=== PATIENT | male | born 1990 | race African-American/Black ===

== ENCOUNTER 2020-03-28 14:01 | Emergency (ER) | payer OTHER, SELFPAY ==
[2020-03-28 14:19] VITALS: BP 114/73; PULSE 57; RESP 16; TEMP 36.7; O2SAT 100
--- NOTE | 2020-03-28 14:24 | PC.NURSE ---
in br to obtain ua spec.
[2020-03-28 14:30] VITALS: BP 114/73; PULSE 57; RESP 16; TEMP 36.7; O2SAT 100
--- NOTE | 2020-03-28 14:49 | ED.FEMALEGU ---
HPI - Female Genitourinary General Chief complaint: Urogenital-Male Stated complaint: STD Time Seen by Provider: 03/28/20 14:34 Source: patient and RN notes reviewed Mode of arrival: ambulatory Limitations: no limitations History of Present Illness HPI Narrative: Patient presents today complaining of urethral irritation and itching x2 days. Reports exposure to chlamydia or trichomonas. States his girlfriend was notified yesterday that she was positive for 1 or possibly both and has been treated appropriately. Denies penile discharge, pain or swelling in the penis or scrotum. Denies any rash or lesions. Denies dysuria or hematuria. Denies abdominal pain. Related Data Allergies Allergy/AdvReac Type Severity Reaction Status Date / Time No Known Allergies Allergy Unverified 11/19/14 21:12 Review of Systems Review of Systems: Narrative: CONSTITUTIONAL: Denies body aches, fever, chills, or sweats. EYES: Denies visual changes, redness, or discharge. ENT: Denies rhinorrhea, congestion, sore throat, or otalgia. CARDIOVASCULAR: Denies chest pain, palpitations, or edema. RESPIRATORY: Denies cough or dyspnea. GASTROINTESTINAL: Denies abdominal pain, nausea, vomiting, or diarrhea. GENITOURINARY: Denies dysuria or hematuria. + Urethral irritation and itching SKIN: Denies rash, itching, or wounds. MUSCULOSKELETAL: Denies back pain, joint pain, or myalgia. NEUROLOGIC: Denies headache, numbness, tingling, or weakness. PSYCH: Denies depression or anxiety. PMFSH Comments At time of signature, I have reviewed and agree with nursing past medical, surgical, social and family history unless otherwise noted. Please see nursing chart for further information. There is no relevant family history pertinent to the presenting complaint Exam Narrative: Exam Narrative: GENERAL: Well-appearing, well-nourished, and in no acute distress. HEAD: Normocephalic, atraumatic. EYES: EOMI. No redness or drainage. Conjunctivae normal. ENT: Mucous membranes pink and moist. NECK: Normal AROM. CHEST: No respiratory distress. Clear to auscultation. HEART: Regular rate and rhythm. No murmur appreciated. Normal peripheral pulses. : deferred EXTREMITIES: Normal range of motion. No edema. SKIN: Warm, dry, no rash. Capillary refill normal. Normal skin turgor. NEURO: No focal deficits. Alert and oriented x3. Gait steady. PSYCH: Normal affect. No signs of depression or anxiety. Course Vital Signs Vital signs: Vital Signs Temperature 98.1 F 03/28/20 14:19 Pulse Rate 57 L 03/28/20 14:19 Respiratory Rate 16 03/28/20 14:19 Blood Pressure 114/73 03/28/20 14:19 Pulse Oximetry 100 03/28/20 14:19 Temperature 98.1 F 03/28/20 14:30 Pulse Rate 57 L 03/28/20 14:30 Respiratory Rate 16 03/28/20 14:30 Blood Pressure 114/73 03/28/20 14:30 Pulse Oximetry 100 03/28/20 14:30 Reviewed MDM - Female Genitourinary Differential Diagnosis Differential diagnosis: Likely urinary tract infection, trichomoniasis and other (Gonorrhea, chlamydia, prostatitis) Critical Care Time Critical Care Time Critical Care Time: No Discharge Plan Discharge Clinical Impression: Concern about STD in male without diagnosis Patient Disposition: Home, Self-Care Condition: Stable Instructions: Antibiotic Form, Chlamydia (ED), Gonorrhea (ED), Trichomoniasis (ED) Additional Instructions: You have been tested and treated for gonorrhea, chlamydia at [facility] today. You should abstain from intercourse for 7 days. You will be notified by phone if any of your tests are positive. group underwriter your prescription of Flagyl from the pharmacy and take as directed for trichomonas. Do not drink any alcohol while taking the Flagyl as it can cause nausea and vomiting. Follow-up with your PCP or an STD clinic if symptoms do not improve. Patient Language: Libyan Prescriptions: New metronidazole 500 mg tablet 500 mg PO Q12H 7 Days Qty: 14 RF: 0 Fo
[2020-03-28] MEDS: AZITHROMYCIN 250 MG TABLET 1000 MG PO (15:01)
[2020-03-28] MEDS: cefTRIAXone 250 MG VIAL IM (15:01)
[2020-03-28] MEDS: LIDOCAINE HCL 1% LOCAL INJ 20 ML VIAL IM (15:01)
== END 2020-03-28 15:20 | disposition home or self-care (01) ==
PROVIDERS: Emergency Provider Nurse Practitioner
DX: Z20.2 Contact with and (suspected) exposure to infections with a predominantly sexual mode of transmission (principal)
CPT/HCPCS: 87491; 87591; 87661; 96372; 99213; A9270; G0463; J0696

== ENCOUNTER 2021-03-16 13:38 | Emergency (ER) | payer MEDICAID, SELFPAY ==
[2021-03-16 14:34] VITALS: BP 98/75; PULSE 78; RESP 16; TEMP 36.5; O2SAT 98
--- NOTE | 2021-03-16 15:12 | ED.URI ---
HPI - URI/Sore Throat General Chief Complaint: Upper Respiratory Infection Stated Complaint: cold sx Time Seen by Provider: 03/16/21 14:52 Source: patient and RN notes reviewed Mode of arrival: ambulatory Limitations: no limitations History of Present Illness HPI Narrative: Patient presents today complaining of a 2-day history of cough, sore throat, decreased appetite, and fatigue. Denies fever, nausea, vomiting. He has tried no medication for symptoms prior to arrival. Significant other was diagnosed with COVID-19 yesterday. MD elicited complaint: cough Related Data Allergies Allergy/AdvReac Type Severity Reaction Status Date / Time No Known Allergies Allergy Unverified 11/19/14 21:12 Review of Systems Review of Systems: CONSTITUTIONAL: Denies body aches, fever, chills, or sweats.+ Fatigue EYES: Denies visual changes, redness, or discharge. ENT: Denies rhinorrhea, congestion, or otalgia.+ Sore throat CARDIOVASCULAR: Denies chest pain, palpitations, or edema. RESPIRATORY: Denies dyspnea.+ Cough GASTROINTESTINAL: Denies abdominal pain, nausea, vomiting, or diarrhea.+ Decreased appetite GENITOURINARY: Denies dysuria or hematuria. SKIN: Denies rash, itching, or wounds. MUSCULOSKELETAL: Denies back pain, joint pain, or myalgia. NEUROLOGIC: Denies headache, numbness, tingling, or weakness. PSYCH: Denies depression or anxiety. PMFSH Comments At time of signature, I have reviewed and agree with nursing past medical, surgical, social and family history unless otherwise noted. Please see nursing chart for further information. There is no relevant family history pertinent to the presenting complaint Exam Narrative: GENERAL: Well-appearing, well-nourished, and in no acute distress. HEAD: Normocephalic, atraumatic. EYES: EOMI. No redness or drainage. Conjunctivae normal. ENT: Mucous membranes pink and moist. Nares clear. No rhinorrhea. TMs normal bilaterally. Throat normal. Uvula midline. NECK: Normal AROM. Supple. No lymphadenopathy. CHEST: No respiratory distress. Clear to auscultation. HEART: Regular rate and rhythm. No murmur appreciated. Normal peripheral pulses. EXTREMITIES: Normal range of motion. No edema. SKIN: Warm, dry, no rash. Capillary refill normal. Normal skin turgor. NEURO: No focal deficits. Alert and oriented x3. Gait steady. PSYCH: Normal affect. No signs of depression or anxiety. Course Vital Signs Vital signs: Vital Signs Temperature 97.7 F 03/16/21 14:34 Pulse Rate 78 03/16/21 14:34 Respiratory Rate 16 03/16/21 14:34 Blood Pressure 98/75 L 03/16/21 14:34 Pulse Oximetry 98 03/16/21 14:34 Temperature 97.7 F 03/16/21 14:34 Pulse Rate 78 03/16/21 14:34 Respiratory Rate 16 03/16/21 14:34 Blood Pressure 98/75 L 03/16/21 14:34 Pulse Oximetry 98 03/16/21 14:34 Reviewed MDM - URI/Sore Throat Differential Diagnosis Differential diagnosis: Likely upper respiratory infection, viral infection, influenza and other (COVID-19) Critical Care Time Critical Care Time Critical Care Time: No Discharge Plan Discharge Clinical Impression: Upper respiratory infection Qualifiers: URI type: unspecified URI Qualified Code(s): J06.9 - Acute upper respiratory infection, unspecified Patient Disposition: Home, Self-Care Condition: Stable Instructions: Upper Respiratory Infection (DC) Additional Instructions: Your symptoms are likely due to a viral illness, possibly COVID-19, which is not treated with antibiotics. Virus symptoms can last for up to 10-14 days. Take Tylenol or ibuprofen for pain or fever. Rest and stay hydrated. Follow up with your PCP in 7-10 days if symptoms are not improving, or sooner if symptoms are worsening. 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 You should receive a phone call to get you scheduled to come through the drive-through in [place]. Patient Language: Occitan Prescriptions: No
== END 2021-03-16 15:20 | disposition home or self-care (01) ==
PROVIDERS: Emergency Provider Nurse Practitioner
DX: J06.9 Acute upper respiratory infection, unspecified (principal); Z20.822 Contact with and (suspected) exposure to COVID-19
CPT/HCPCS: 99211; G0463

== ENCOUNTER → 2021-03-19 08:46 | Outpatient (CLI) | payer BC, MEDICAID, SELFPAY ==
[2021-03-19 19:04] LABS: SARS-CoV-2 RNA PCR Positive
== END ==
PROVIDERS: Visit Provider Nurse Practitioner
DX: U07.1 COVID-19 (principal)
CPT/HCPCS: C9803; U0003; U0005

== ENCOUNTER 2023-06-29 09:34 | Emergency (ER) | payer OTHER, SELFPAY ==
--- NOTE | ~2023-06-29 | XR_ITS ---
XR chest 2V DATE: 06/29/2023 10:00 INDICATION: Dry cough since March TECHNIQUE: PA and lateral views COMPARISON: None FINDINGS: Normal heart size. No hilar or mediastinal enlargement. There is bilateral hyperinflation suggesting obstructive airways disease. No pulmonary infiltrate or consolidation, pleural effusion or pulmonary vascular congestion or pneumothorax is detected. Include d skeletal structures are unremarkable. IMPRESSION: Bilateral hyperinflation Reviewed, dictated and finalized at location A. IMPRESSION: Bilateral hyperinflation
[2023-06-29 09:35] VITALS: BP 147/103; PULSE 86; RESP 17; TEMP 36.2; O2SAT 100
[2023-06-29 09:43] VITALS: O2SAT 100
--- NOTE | 2023-06-29 10:17 | ED.URI ---
HPI - URI/Sore Throat General Chief Complaint: Upper Respiratory Infection Stated Complaint: cough Time Seen by Provider: 06/29/23 09:44 Source: patient Mode of arrival: ambulatory Limitations: no limitations History of Present Illness HPI Narrative: Patient is a 33-year-old male who presents the ED with report of persistent cough. Patient reports having intermittent cough since February of last year. He has been seen at several different facilities for this and by his primary care doctor. Has had intermittent improvement of symptoms, worsening over the last 1 week. States the cough keeps him up at night. Denies congestion, sore throat, rhinorrhea, chest pain, shortness of breath, hemoptysis, fevers. He was seen in [facility] 2 days ago and had a negative workup, negative viral swabs, prescribed albuterol and prednisone. Patient states he was not given anything for his cough. He has tried [id number] Robitussin and Delsym without improvement. Related Data Allergies Allergy/AdvReac Type Severity Reaction Status Date / Time No Known Allergies Allergy Unverified 11/19/14 21:12 Review of Systems Review of Systems: CONSTITUTIONAL: Denies fever, chills, or sweats. ENT: Denies rhinorrhea, congestion, sore throat. CARDIOVASCULAR: Denies chest pain, palpitations. RESPIRATORY: See HPI. GASTROINTESTINAL: Denies abdominal pain, nausea, vomiting. NEUROLOGIC: Denies headache, dizziness, numbness, or weakness. All systems reviewed & are unremarkable except as noted in HPI and below Exam Narrative: GENERAL: Well appearing, thin, non-toxic, in no acute distress. HEAD: Normocephalic, atraumatic. RESPIRATORY: Airway patent, respirations nonlabored. Clear to auscultation bilaterally, no rales, rhonchi, wheezing. No focal lung sounds. CARDIOVASCULAR: Regular rate and rhythm without murmurs, rubs, or gallops. MUSCULOSKELETAL: Moves all extremities. No gross deformities. No lower extremity edema. SKIN: Warm, dry, normal color. NEURO: A&O X3. Speech clear. PSYCHIATRIC: Appropriate mood and affect. Normal interaction. Course Vital Signs Vital signs: Vital Signs Temperature 97.2 F L 06/29/23 09:35 Pulse Rate 86 06/29/23 09:35 Respiratory Rate 17 06/29/23 09:35 Blood Pressure 147/103 H 06/29/23 09:35 Pulse Oximetry 100 06/29/23 09:35 Oxygen Delivery Room Air 06/29/23 09:35 Temperature 97.2 F L 06/29/23 09:35 Pulse Rate 86 06/29/23 09:35 Respiratory Rate 17 06/29/23 09:35 Blood Pressure 147/103 H 06/29/23 09:35 Pulse Oximetry 100 06/29/23 09:43 Oxygen Delivery Room Air 06/29/23 09:43 MDM - URI/Sore Throat MDM Narrative Medical decision making narrative: Patient presented to ED with several month history of intermittent persistent cough, worsening again over the last 1 week. Prescribed prednisone and albuterol 2 days ago by outside hospital and has been taking this as prescribed, but states he was not prescribed anything for the cough. No relief with [id number] medications. I discussed chest x-ray here was clear, no evidence for pneumonia. Advised could be prolonged viral cough, he otherwise denies any infectious symptoms. Swabbed negative for COVID/flu/RSV 2 days ago. Denies chest pain or shortness breath. I discussed obtaining further workup including laboratory studies and patient declined this. He states he would just like something for his cough. There is no evidence of DVT on exam, low suspicion for PE. Patient otherwise PERC negative. He does not report any symptoms consistent with ACS. Per med rec, patient has received several different prescriptions over the last few months for narcotic cough medicine, promethazine, codeine cough syrup. When asked about this, patient states that he was not able to actually fill these from the pharmacy. He showed me a small pharmacy in [place] that has this cough medicine that he would like me to send his prescriptions to. I do no
== END 2023-06-29 12:08 | disposition home or self-care (01) ==
LOC: ANHED 10:33
PROVIDERS: Emergency Provider Physician Assistant
DX: R05.9 Cough, unspecified (principal)
CPT/HCPCS: 71046; 99283

== ENCOUNTER 2023-07-26 14:46 | Emergency (ER) | payer OTHER, SELFPAY ==
--- NOTE | 2023-07-26 14:51 | ED.URI ---
HPI - URI/Sore Throat General Chief Complaint: Upper Respiratory Infection Stated Complaint: cough Time Seen by Provider: 07/26/23 14:51 Source: patient Mode of arrival: ambulatory Limitations: no limitations History of Present Illness HPI Narrative: Renee is a 33-year-old male patient presenting to the clinic today with complaints of a cough that has been ongoing since March. He reports the cough seemed to have gotten worse over the past 9 days. Reports the cough is dry. No fever, chills, body aches, hemoptysis, or weight loss. 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 Chest x-ray was completed 3 weeks ago and was negative for any pneumonia but did show some possible reactive airway. He was given albuterol, prednisone, and promethazine with codeine cough syrup. His PCP sent him in a prescription for the promethazine with codeine cough syrup and prednisone 2 days ago and the patient was unable to pick this up. He is wanting some type of cough medicine to take until he is able get a hold of his primary care provider. States that he has tried [id number] cough medicine without relief. The cough is keeping him up but night. He does not take any Gilberto inhibitors or arbs. Denies any allergy are URI symptoms. No Gerd symptoms. 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 No coughing heard while in the clinic today. MD elicited complaint: sore throat and nasal congestion Related Data Home Medications Medication Instructions Recorded Confirmed prednisone 20 mg tablet 20 mg PO DAILY 07/26/23 07/26/23 promethazine 6.25 mg-codeine 10 5 ml PO PRN PRN Cough 07/26/23 07/26/23 mg/5 mL syrup Allergies Allergy/AdvReac Type Severity Reaction Status Date / Time No Known Allergies Allergy Unverified 11/19/14 21:12 Review of Systems Review of Systems: Pertinent positives per HPI. Patient denies any fever, chills, rash, headache, visual changes, dizziness,shortness of breath, chest pain, palpitations, nausea, vomiting, diarrhea, constipation, abdominal pain, or any urinary issues. PMFSH Comments At the time of my signature, I reviewed and agree with the nursing past medical, surgical, social, and family history. There is no relevant family history pertinent to the patient complaint. Exam Narrative: General: Well-developed, well nourished, in no apparent distress Head: Normocephalic, atraumatic Eyes: Pupils equally round and reactive to light bilaterally, EOM intact, sclera and conjunctive clear, no discharge, lids normal Ears: TMs intact and clear, ear canals clear, no drainage, grossly hearing normal. Nose: Nares patent, no discharge, no inflammation, no sinus tenderness. Mouth: Oral pharynx without lesions or masses, good dentition, MMM. Neck: Supple, trachea midline, no enlargement of anterior or posterior cervical nodes, no thyroid masses or goiter palpable. Cardio: Regular rate and rhythm, s1 and s2 normal, no murmur appreciated. Resp: Clear to auscultation bilaterally, no rhonchi, rales, wheezing or rubs Course Course Emergency Course: Portions of this record may have been created with voice recognition software. Level of Care: Express Care Visit Vital Signs Vital signs: Vital signs reviewed MDM - URI/Sore Throat MDM Narrative Medical decision making narrative: At the time of visit patient is resting comfortably on the exam table. Patient appears to be nontoxic. Plan: I suspect patient has a nonproductive persistent cough. Prescription for Tessalon Perles was sent to the pharmacy. Supportive measures were discussed with the patient and they voiced understanding discharge instructions and agrees to treatment plan. Return precautions reviewed Differential Diagnosis Differential diagnosis: Likely upper respiratory infection, otitis media, sinusitis, viral infection, bronchitis, influenza, pharyngitis and other (COVID, allergic
[2023-07-26 15:02] VITALS: BP 117/81; PULSE 80; RESP 16; TEMP 37.2; O2SAT 100
[2023-07-26 15:12] VITALS: BP 117/81; PULSE 80; RESP 16; TEMP 37.2; O2SAT 100
== END 2023-07-26 15:20 | disposition home or self-care (01) ==
PROVIDERS: Emergency Provider Nurse Practitioner Family
DX: R05.9 Cough, unspecified (principal)
CPT/HCPCS: 99213; G0463

== ENCOUNTER 2024-04-01 17:44 | Emergency (ER) | payer SELFPAY ==
[2024-04-01 17:54] VITALS: BP 121/79; PULSE 69; RESP 18; TEMP 36.9; O2SAT 100
--- NOTE | 2024-04-01 18:33 | ED_ITS ---
HPI - URI/Sore Throat General Chief Complaint: Upper Respiratory Infection Stated Complaint: Cough/Sinus Time Seen by Provider: 04/01/24 18:33 Source: patient, RN notes reviewed and old records reviewed Mode of arrival: ambulatory Limitations: no limitations History of Present Illness HPI Narrative: 34-year-old male presents to the [facility] with complaints of cough and sinus congestion for 2 days. Has a history of a chronic cough. States he has taken albuterol and using Mucinex. Related Data Home Medications ?Medication ?Instructions ?Recorded ?Confirmed ?Last Taken ?Type albuterol sulfate 90 mcg/actuation inhalation 04/01/24 Unknown History aerosol inhaler Allergies Allergy/AdvReac Type Severity Reaction Status Date / Time No Known Allergies Allergy Verified 04/01/24 18:12 Review of Systems Review of Systems: All systems reviewed & are unremarkable except as noted in HPI and below Constitutional: Constitutional: Reports no additional constitutional complaints ENT: Reports as per HPI, Reports nasal congestion and Reports sore throat Cardiovascular: Cardiovascular: Reports no additional cardiovascular complaints, Denies chest pain and Denies dyspnea Respiratory: Respiratory: Reports as per HPI, Denies chest congestion, Reports cough and Denies dyspnea Musculoskeletal: Musculoskeletal: Reports no additional musculoskeletal complaints Integumentary/Breasts: Skin/Breast: Reports system reviewed and no additional complaints, except as docu PMFSH Comments At the time of my signature, I reviewed and agree with the nursing past medical, surgical, social, and family history. There is no relevant family history pertinent to the patient complaint. Exam Const: General: cooperative, healthy appearing, comfortable, no acute distress, well developed, alert and well nourished Nutritional Appearance: well nourished Orientation/consciousness: patient oriented x3 Limitations: no limitations HENMT: Head: normal to inspection Ears: hearing grossly normal bilaterally, external ears normal, TM's normal bilaterally, EAC's normal, mastoids normal and no periauricular adenopathy Mouth: Yes Normal oral and palatal mucosa present, Yes lip normal and Yes tongue normal Throat: posterior oropharynx normal, uvula midline, postnasal drainage and no uvular edema Eyes: General: appearance normal, both eyes and all related structures Alignment and Position: alignment normal Neck: Neck: normal visual inspection, full ROM, no lymphadenopathy and no meningeal signs Chest: Chest palpation & inspection: normal inspection of the chest Resp: Effort & Inspection: normal respiratory effort and able to speak in complete sentences Auscultation: clear to auscultation bilaterally, no crackles, no rales, no rhonchi and no wheezes Cardio: Rate: regular rate Skin: General skin exam: normal color and no rashes or lesions noted Neuro: General: patient oriented x3, gait normal, moves all extremities and no meningeal signs Cognition (Neuro): normal cognition Speech: normal speech Gait exam (Neuro): Normal gait present Extrem: General: normal to inspection, full ROM, capillary refill normal and normal gait Psych: Appearance: grossly normal and well kempt Mental Status: mental status grossly normal Speech and movement: Normal speech and movement present and Clear speech present Affect: normal affect Attitude: cooperative Course Course Level of Care: Express Care Visit Vital Signs Vital signs: Vital Signs Temperature 98.5 F 04/01/24 17:54 Pulse Rate 69 04/01/24 17:54 Respiratory Rate 18 04/01/24 17:54 Blood Pressure 121/79 04/01/24 17:54 Pulse Oximetry 100 04/01/24 17:54 Oxygen Delivery Room Air 04/01/24 17:54 Temperature 98.5 F 04/01/24 17:54 Pulse Rate 69 04/01/24 17:54 Respiratory Rate 18 04/01/24 17:54 Blood Pressure 121/79 04/01/24 17:54 Pulse Oximetry 100 04/01/24 17:54 Oxygen Delivery Room Air 04/01/24 17:54 Reviewed MDM - URI/Sore Throat MDM Narrative Medical decision making narrative: Patient sitting comfortably nontoxic, vitals stable. Patient in no acute distress. Patient presents with 2 day history of URI symptoms, flu and COVID negative. Only acute finding noted was postnasal drainage, no other acute findings noted. Patient appropriate for outpatient treatment with follow-up Discharge instructions reviewed with patient, as well as provided in writing per nursing staff. The instructions also include specific and strict return/GO TO THE ER as well as f/u information. All questions have been answered, and the patient deny any further questions with discharge and discharge plan. Some parts of this dictation were generated by voice recognition software and may contain typographical and/or grammatical inaccuracies. Differential Diagnosis Differential diagnosis: Likely upper respiratory infection, otitis media, sinusitis, viral infection, bronchitis, influenza and pharyngitis Lab Data Labs: Lab Results 04/01/24 04/01/24 Range/Units 17:58 18:08 POC Influenza A Ag Negative Negative (Negative) POC Influenza B Ag Negative Negative (Negative) POC SARS CoV-2 Ag Negative Negative (Negative) Reviewed Critical Care Time Critical Care Time Critical Care Time: No Discharge Plan Discharge Clinical Impression: PND (post-nasal drip) Upper respiratory infection Qualifiers: URI type: unspecified viral URI Qualified Code(s): J06.9 - Acute upper respiratory infection, unspecified Patient Disposition: Home, Self-Care Condition: Stable Instructions: Antibiotic Form, Upper Respiratory Infection (DC), Postnasal Drip (DC) Additional Instructions: Your rapid COVID test were negative Your rapid flu test was negative Your symptoms are likely due to a viral illness, which is not treated with antibiotics. Typically viral infections last 7-10 days, can linger for couple of weeks. It is very important to treat your symptoms. Drink plenty of water, Gatorade, Pedialyte, ice pops or Jell-O. -Alternate Tylenol and Motrin per package directions for fever or pain. You can alternate every 4 hours -Antihistamine medication such as Zyrtec/Claritin/Elham during the day can help improve symptoms. -doing daily nasal irrigations can help relieve pressure your sinuses. Things like a Neti pot -Use Flonase twice a day for 5 days then daily to help reduce the inflammation and dry up your sinuses. -You can also use Mucinex. Be sure to drink plenty of water with this medication at least 8 ounces with every dose and it is important to drink 8 to 10 glasses of water per day. Water is a natural decongestant -Eat and drink things that are easy to swallow, like tea or soup, or popsicles. -Oral rinses such as: Salt water gargles and/or may use topical anesthetic (eg. Chloraseptic spray) or lozenges to relieve dryness or throat pain). -Frequent hand washing or hand veterinary x ray operator is one of the best ways to prevent spread of infection. -Using a vaporizer or humidifier at night will also help thin secretions and help with coughing up phlegm. -Follow up with primary care provider in 7-10 days if condition is not improving - For new or worsening symptoms go directly to the nearest ER Patient Language: Tamazight Prescriptions: No Action albuterol sulfate 90 mcg/actuation HFA aerosol inhaler INHALATION Follow-up/Referrals: PHYSICIAN,PROGRAM DIRECTOR SUBSTANCE ABUSE [Primary Care Provider] - Stand Alone Forms: Work/School Release IP Time of Disposition: 18:40
[2024-04-01 18:43] LABS: EDCOVIDSCREEN Negative (Negative); EDINFLUASCREEN Negative (Negative); EDINFLUBSCREEN Negative (Negative)
[2024-04-01 18:44] LABS: EDCOVIDSCREEN Negative (Negative); EDINFLUASCREEN Negative (Negative); EDINFLUBSCREEN Negative (Negative)
== END 2024-04-01 18:45 | disposition home or self-care (01) ==
PROVIDERS: Emergency Provider Nurse Practitioner
DX: R09.82 Postnasal drip (principal); J06.9 Acute upper respiratory infection, unspecified; Z20.822 Contact with and (suspected) exposure to COVID-19
CPT/HCPCS: 87426; 87804; 99212; G0463